=== PATIENT | male | born 1940 | race Caucasian/White ===

== ENCOUNTER 2021-09-09 08:50 | Outpatient (CLI) | payer MEDICARE | END 2021-09-09 08:51 | disposition home or self-care (01) | LOC: CSHWCC 08:50 | PROVIDERS: ATTEND Nurse Practitioner Family | DX: S51.001D Unspecified open wound of right elbow, subsequent encounter (principal); S51.002D Unspecified open wound of left elbow, subsequent encounter; S51.802D Unspecified open wound of left forearm, subsequent encounter | CPT/HCPCS: 11042; 97139; G0463; 99203 ==

== ENCOUNTER 2021-10-24 10:12 | Outpatient (CLI) | payer MEDICARE | END 2021-10-24 10:13 | disposition home or self-care (01) | LOC: CSHWCC 10:12 | PROVIDERS: ATTEND Nurse Practitioner Family | DX: L89.620 Pressure ulcer of left heel, unstageable (principal); S51.002D Unspecified open wound of left elbow, subsequent encounter; S51.802D Unspecified open wound of left forearm, subsequent encounter; R60.0 Localized edema | CPT/HCPCS: 11042; 97139; G0463; 99213 ==

== ENCOUNTER 2021-11-02 08:32 | Outpatient (CLI) | payer MEDICARE | END 2021-11-02 08:33 | disposition home or self-care (01) | LOC: CSHWCC 08:32 | PROVIDERS: ATTEND Nurse Practitioner Family | DX: L89.620 Pressure ulcer of left heel, unstageable (principal); S51.002D Unspecified open wound of left elbow, subsequent encounter; S51.802D Unspecified open wound of left forearm, subsequent encounter; S91.309D Unspecified open wound, unspecified foot, subsequent encounter; R60.0 Localized edema | CPT/HCPCS: 11042; 97139; G0463; 99214 ==

== ENCOUNTER 2021-11-16 09:51 | Outpatient (CLI) | payer MEDICARE | END 2021-11-16 09:52 | disposition home or self-care (01) | LOC: CSHWCC 09:51 | PROVIDERS: ATTEND Nurse Practitioner Family | DX: S51.802D Unspecified open wound of left forearm, subsequent encounter (principal); S91.309D Unspecified open wound, unspecified foot, subsequent encounter; R60.0 Localized edema ==

== ENCOUNTER 2021-11-22 13:17 | Outpatient (CLI) | payer MEDICARE | END 2021-11-22 13:18 | disposition home or self-care (01) | LOC: CSHWCC 13:17 | PROVIDERS: ATTEND Nurse Practitioner Family | DX: S51.002D Unspecified open wound of left elbow, subsequent encounter (principal); S51.802D Unspecified open wound of left forearm, subsequent encounter; S91.309D Unspecified open wound, unspecified foot, subsequent encounter; L89.620 Pressure ulcer of left heel, unstageable; R60.0 Localized edema ==

== ENCOUNTER 2021-12-07 14:20 | Outpatient (CLI) | payer MEDICARE | END 2021-12-07 14:21 | disposition home or self-care (01) | LOC: CSHWCC 14:20 | PROVIDERS: ATTEND Nurse Practitioner Family | DX: S51.802D Unspecified open wound of left forearm, subsequent encounter (principal); S81.802D Unspecified open wound, left lower leg, subsequent encounter; L89.620 Pressure ulcer of left heel, unstageable; E11.621 Type 2 diabetes mellitus with foot ulcer; L97.522 Non-pressure chronic ulcer of other part of left foot with fat layer exposed; R60.0 Localized edema | CPT/HCPCS: 11042; 97605 ==

== ENCOUNTER 2021-12-21 10:31 | Outpatient (CLI) | payer MEDICARE | END 2021-12-21 10:32 | disposition home or self-care (01) | LOC: CSHWCC 10:31 | PROVIDERS: ATTEND Nurse Practitioner Family | DX: L89.620 Pressure ulcer of left heel, unstageable (principal); L89.610 Pressure ulcer of right heel, unstageable; E11.621 Type 2 diabetes mellitus with foot ulcer; L97.522 Non-pressure chronic ulcer of other part of left foot with fat layer exposed; S51.802D Unspecified open wound of left forearm, subsequent encounter; S81.802D Unspecified open wound, left lower leg, subsequent encounter; R60.0 Localized edema ==